=== PATIENT | female | born 1950 | race Caucasian/White ===

== ENCOUNTER 2024-12-16 13:44 | Emergency (ER) | payer MEDICARE, BC ==
[~2024-12-16] VITALS: Ht 172.7 cm; Wt 57.1 kg
[2024-12-16 14:12] VITALS: BP 105/47
[2024-12-16 14:30] VITALS: BP 97/54
[2024-12-16 15:01] VITALS: BP 110/53
[2024-12-16 15:30] VITALS: BP 110/53
== END 2024-12-16 15:38 | disposition home or self-care (01) ==
LOC: ED 13:44
DX: S20.212A Contusion of left front wall of thorax, initial encounter (principal); W01.0XXA Fall on same level from slipping, tripping and stumbling without subsequent striking against object, initial encounter; Y92.009 Unspecified place in unspecified non-institutional (private) residence as the place of occurrence of the external cause